=== PATIENT | female | born 1980 | race Caucasian/White ===

== ENCOUNTER → 2017-12-13 12:16 | Outpatient (CLI) | payer BC, SELFPAY ==
[2017-12-13 13:11] LABS: Thyroid Stim Hormone (TSH) 0.83 uIU/mL (0.358-3.74)
== END ==
PROVIDERS: Family Provider Internal Medicine; PCP Internal Medicine; Visit Provider Obstetrics & Gynecology
DX: N92.6 Irregular menstruation, unspecified (principal)
CPT/HCPCS: 36415; 84443

== ENCOUNTER → 2018-01-10 07:02 | Outpatient (CLI) | payer BC, SELFPAY ==
--- NOTE | 2018-01-10 07:03 | BI_ITS ---
MAMMOGRAPHY - BILATERAL SCREENING 3-D TRINH SYNTHESIS REASON FOR EXAM: Female, 38 years old. Bilateral Screening 3-D tomosynthesis PERTINENT HISTORY: Left breast tenderness on occasion. 15 pound weight gain. No significant family history. TECHNIQUE: 2-D mammograms and 3-D Trinh synthesis of the breast (s) were performed. CAD was performed. COMPARISON: 10/13/2015. FINDINGS: The breast composition is composed of scattered fibroglandular density. Scattered benign calcifications are seen. No dense spiculated dominant masses or suspicious microcalcification cluster are identified. No new architectural distortion, asymmetric density, adenopathy, skin thickening or nipple retraction identified. There has been no significant change identified since the prior study. BI/SCREENING MAMM (CAD), BILAT IMPRESSION: No mammographic sign of malignancy. Routine yearly mammograms recommended. ASSESSMENT CATEGORY: BIRADS Category 2: Benign. A letter regarding these results will be sent to the patient by the facility within 30 days. FOLLOW UP RECOMMENDATION: Yearly follow up mammogram recommended. (A) Negative mammographic results should not deter biopsy as a palpable lesion if present should be followed based on clinical grounds and biopsy performed if clinically persistent for 3 months or increasing size. Approximately 10% of breast cancers are not detected by mammography. A normal mammogram should not delay biopsy of a clinically suspicious abnormality. Dense breast tissue may obscure neoplasm. Electronically Signed: Donnie Reese, at 18:05 EDT Tel , Service support ,
== END ==
PROVIDERS: Family Provider Internal Medicine; PCP Internal Medicine; Visit Provider Obstetrics & Gynecology
DX: Z12.31 Encounter for screening mammogram for malignant neoplasm of breast (principal)
CPT/HCPCS: 77063; 77067

== ENCOUNTER → 2019-03-12 09:55 | Outpatient (CLI) | payer OTHER, SELFPAY ==
--- NOTE | 2019-03-12 10:04 | BI_ITS ---
MAMMOGRAPHY - BILATERAL SCREENING 3-D TOMOSYNTHESIS REASON FOR EXAM: Female, 39 years old. Routine annual screening examination. PERTINENT HISTORY: History of left breast tenderness.. TECHNIQUE: 2-D mammograms and 3-D Tomosynthesis of the breast (s) were performed. CAD was performed. COMPARISON: January 10, 2018, November 18, 2015 FINDINGS: The breast composition is almost entirely fat. Scattered benign calcifications are seen. No dense spiculated masses or suspicious microcalcifications are identified. No architectural distortion is identified. There is no skin thickening or retraction. Stable lymph nodes. There has been no significant change since the prior study. BI/SCREEN MAMM (CAD) W/TRINH BILAT IMPRESSION: No mammographic signs of malignancy. Routine yearly mammograms recommended. ASSESSMENT CATEGORY: BIRADS Category 2: Benign. A letter regarding these results will be sent to the patient by the facility within 30 days. FOLLOW UP RECOMMENDATION: Yearly follow up mammogram recommended. (A) Approximately 10% of breast cancers are not detected by mammography. A normal mammogram should not delay biopsy of a clinically suspicious abnormality. Electronically Signed: Sj Agee MD at 10:30 EST , Service support ,
== END ==
PROVIDERS: Family Provider Internal Medicine; PCP Internal Medicine; Referring Provider Obstetrics & Gynecology; Visit Provider Obstetrics & Gynecology
DX: Z12.31 Encounter for screening mammogram for malignant neoplasm of breast (principal)
CPT/HCPCS: 77063; 77067

== ENCOUNTER → 2022-03-15 | Outpatient (CLI) | payer OTHER, SELFPAY ==
[2022-03-15 13:59] LABS: Estradiol 19.1 pg/mL; Follicle Stimulating Hormone 40.4 mIU/mL; Thyroid Stim Hormone (TSH) 1.13 uIU/mL (0.358-3.74)
[2022-03-22 20:40] LABS: HPV APTIMA, High Risk Negative (Negative)
== END | disposition home or self-care (01) ==
PROVIDERS: PCP Internal Medicine; Referring Provider Nurse Practitioner Women's Health; Visit Provider Nurse Practitioner Women's Health
DX: Z12.4 Encounter for screening for malignant neoplasm of cervix (principal); N92.6 Irregular menstruation, unspecified; Z13.29 Encounter for screening for other suspected endocrine disorder
CPT/HCPCS: 36415; 82670; 83001; 84443; 87624; 88175; G0145